=== PATIENT | male | born 1990 | race Caucasian/White ===

== ENCOUNTER 2017-02-13 14:00 | Emergency (ER) | payer OTHER, MEDICAID ==
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
[2017-02-13 16:50] VITALS: BP 129/69; PULSE 70; RESP 18; TEMP 97.7; O2SAT 97
== END 2017-02-13 16:51 | disposition home or self-care (01) ==
DX: S63.502A Unspecified sprain of left wrist, initial encounter (principal); S39.012A Strain of muscle, fascia and tendon of lower back, initial encounter; S16.1XXA Strain of muscle, fascia and tendon at neck level, initial encounter; F17.200 Nicotine dependence, unspecified, uncomplicated; V49.49XA Driver injured in collision with other motor vehicles in traffic accident, initial encounter; Y92.410 Unspecified street and highway as the place of occurrence of the external cause; Y99.8 Other external cause status; Y93.89 Activity, other specified

== ENCOUNTER 2018-06-08 21:44 | Emergency (ER) | payer MEDICAID, OTHER ==
[2018-06-08] MEDS ORDERED: TETRACAINE 0.5% 15 ML OPHT.BTL LEFTEYE ONE (22:03)
[2018-06-08] MEDS ORDERED: FLUORESCEIN SODIUM 1 MG STRIP OP ONE (22:07)
[2018-06-08] MEDS ORDERED: PROPARACAINE 0.5% 15 ML OPHT DROP OP ONE (22:10)
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
[2018-06-08] MEDS ORDERED: PROPARACAINE 0.5% 15 ML OPHT DROP ONE (22:17)
[2018-06-08] MEDS ORDERED: OFLOXACIN 0.3% SOLN PREPACK OPHT.BTL TAKEHOME ONE (22:34)
[2018-06-08 22:59] VITALS: BP 125/76
[2018-06-09] MEDS ORDERED: OFLOXACIN 0.3% 5ML OPHT DROPS LEFTEYE SCH (02:00)
== END 2018-06-08 22:50 | disposition home or self-care (01) ==
DX: T26.42XA Burn of left eye and adnexa, part unspecified, initial encounter (principal); X10.2XXA Contact with fats and cooking oils, initial encounter; Y99.0 Civilian activity done for income or pay; Y93.G3 Activity, cooking and baking

== ENCOUNTER 2018-08-03 17:34 | Emergency (ER) | payer OTHER | END 2018-08-03 18:41 | disposition home or self-care (01) ==